=== PATIENT | female | born 1930 | race Caucasian/White ===

== ENCOUNTER 2016-04-24 11:59 | Inpatient (IN) | payer OTHER ==
[~2016-04-24] VITALS: Ht 160 cm; Wt 46.7 kg
--- NOTE | ~2016-04-24 | EKG ---
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 04/25/16 0759 1212 1212 Zachary Carvalho MD, FACC /EPI
--- NOTE | ~2016-04-24 | HC ---
[facility] [place] [address] CONSULTATION Name: MICHEL SALVADOR Room #: 445-P [facility] IN M.R.#: [id number] Admission: 04/24/16 Attend Phys: Matty Juarez MD Discharge: 04/29/16 Date of : 29 Report #: [id number] THIS REPORT FOR: //name// CC: JAMES Juarez MD DATE OF SERVICE: 04/28/2016 REFERRING PROVIDER: Matty Juarez MD REASON FOR CONSULTATION: Pulmonary infiltrates. CHIEF COMPLAINT: Cough and weakness. HISTORY OF PRESENT ILLNESS: Our group was asked to see the patient in consultation while hospitalized at [facility], very pleasant 85-year-old woman without any past pulmonary history and then a remote history of pneumonia, no history of tobacco use, presented to the emergency department after being seen in urgent care for complaints of cough, difficulty expectorating sputum. Denied any fevers or chills, but had been having some sweats and notes some increasing exertional dyspnea, had been feeling very fatigued, in fact felt like not getting out of bed. When presenting to the emergency department, was found to be hypotensive and to have infiltrates. A CT scan of the chest was done to evaluate for pulmonary embolism and reticulonodular infiltrates were noted throughout, predominantly in the lower lung brooks as well as some mediastinal hilar adenopathy, most prominent in the subcarinal area and bilateral hilum. There were some calcifications, however, as well as some other findings suggestive of old granulomatous disease. She was started on antimicrobial therapy for community-acquired pneumonia including Rocephin and azithromycin. She has been improving to this point, however, based on CT imaging, we were asked to further comment. She has no other history of tuberculosis exposure, no other chronic history of weight loss or consumptive symptoms or persistent cough. Current symptoms have been present for about 2 weeks. ALLERGIES: Include MIDAZOLAM, IODINE, and PREDNISONE. PAST MEDICAL HISTORY: 1. Hypertension. 2. History of gastric ulcers. 3. History of hemicolectomy what sounds like ischemic bowel. 4. History of carotid endarterectomies. 5. Cholecystectomy. 6. Hysterectomy. [address] [address] CONSULTATION Name: MICHEL SALVADOR Room #: 445-P [facility] IN M.R.#: [id number] Admission: 04/24/16 Attend Phys: Matty Juarez MD Discharge: 04/29/16 Date of : 29 Report #: [id number] 7. Hyperlipidemia. 8. Osteoarthritis. CURRENT MEDICATIONS: 1. Tylenol p.r.n. 2. DuoNebs q. 4 hours. 3. Aspirin daily. 4. Azithromycin 500 daily. 5. Rocephin 1 mg daily. 6. Colace. 7. Enoxaparin 30 mg at bedtime. 8. Hydrocodone p.r.n. 9. Synthroid 0.088 daily. 10. Metoprolol 25 twice daily. 11. Protonix 40 mg twice daily. 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 Currently lives independently in a condominium with rare alcohol consumption. FAMILY HISTORY: Significant for a brother who had lung cancer, was a never smoker. REVIEW OF SYSTEMS: CONSTITUTIONAL: Denies any fevers, chills. Has had some sweats. No change in weight or appetite. ENT: No upper respiratory congestion. Does have a history of chronic sinus disease, no dysphagia. CARDIOVASCULAR: Denies any chest pain or palpitations. GASTROINTESTINAL: No nausea, vomiting, diarrhea, constipation or abdominal pain. History of ulcers. GENITOURINARY: No dysuria, no frequency. INTEGUMENT: Denies any rash. MUSCULOSKELETAL: Some chronic joint pain, back pain, particularly neck pain associated with osteoarthritis. PHYSICAL EXAMINATION: VITAL SIGNS: Afebrile, pulse 90s and regular, respiratory rate 20, blood pressure 162/95, oxygen saturation 95% on room air. GENERAL: This is a pleasant elderly woman in no distress. ENT: Clear oropharynx. Mallampati 1 airway. NECK: Supple, no lymphadenopathy. LUNGS: Bilateral basilar inspiratory crackles, left greater than right. No wheezes noted. CARDIOVASCULAR: Heart regular. No murmurs noted. ABDOMEN: Soft, nontender, no masses. EXTREMITIES: Warm, 2+ pulses, no edema. [address] [address] CONSULTATION Name: MICHEL SALVADOR Room #: [facility] IN ..#: [id number] Admission: 04/24/16 Attend Phys: Matty Juarez MD Discharge: 04/29/16 Date of : 29 Report #: [id number] MUSCULOSKELETAL: [place] and [place] nodes noted in the hands bilaterally. LABORATORY DATA: CT scan of the chest PE protocol dated April 24 reveals some scattered bronchiectasis. There is a significant lower lobe predominant nodular infiltrates, left greater than right associated with this bronchiectasis. There was also some bilateral hilar and subcarinal adenopathy, some of which is calcified. No discrete lung mass is otherwise appreciated. Sodium is 139, potassium 4.5, chloride 103, bicarbonate 28, BUN 10, creatinine 0.7, glucose 87, albumin is 2.6. White blood cell count 8000, hemoglobin 9, hematocrit 29, platelet count 207. There is no arterial blood gas. No sputum cultures. Respiratory viral panel is pending. IMPRESSION: 1. Nodular pulmonary infiltrates consistent with community-acquired pneumonia. Would also be concerned about atypical infections; however, the patient denies any chronic symptoms. 2. Mediastinal subcarinal adenopathy may be associated with #1 above. I doubt a malignant process especially since there are some calcifications. It suggests an old process that is benign. 3. Anemia of unclear etiology. Consider further workup. SUGGEST: 1. Sputum for AFB and routine cultures. 2. Check nasal swab for respiratory viral panel. 3. Continue with treatment for community-acquired pneumonia. 4. Continue with airway clearance. We will add flutter valve to assist with airway clearance. 5. Mobilize with ambulation. 6. Follow up repeat CT imaging, likely in 4-6 weeks to ensure clearance of infiltrates along with the patient continues to improve. We will follow along with you. Thank you for requesting our suggestions. <ELECTRONICALLY SIGNED> By: Shalom Juarez MD 04/30/16 1508 0941 1014 Shalom Juarez MD /nt
--- NOTE | ~2016-04-24 | EKG ---
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
--- NOTE | ~2016-04-24 | 2DMMODE ---
[facility] [place] [address] 2 D/M-MODE ECHOCARDIOGRAM Name: MICHEL SALVADOR Room #: 445-P [facility] IN M.R.#: [id number] Admission: 04/24/16 Attend Phys: Katy Rosas Discharge: Date of : 28 Date of Service: 04/29/16 0817 Report #: [id number] THIS REPORT FOR: //name// Transthoracic Echocardiography Ordering physician: Matty Juarez Referring physician: Matty Juarez Michael Razor Sharpener: Opal Wilkes Indications/History: Afib. Hx: HTN, HLP BP: 149 / HR: 110bpm Height: 63in Weight: 102.8lb 53 Study data: M-mode, complete 2D, complete spectral Doppler, and color Doppler. Location: Echo laboratory. Routine. Image quality was good. 2D measurements Normal Normal LVID ED 37.3mm 36-57 IVS ED 14.2mm 6-11 LVID ES 27.4mm 23-40 LVPW ED 11.6mm 6-11 LA volume 49ml/m2 16-28 AoRoot diam 31.6mm 21-37 index ED LVOT diameter 20mm 18-23 Findings: Left ventricle: The cavity size was normal. Wall thickness was increased in a pattern of mild LVH. Systolic function was normal. The estimated ejection fraction was in the range of 55% to 60%. Wall motion was normal. Right ventricle: The cavity size was normal. Systolic function was normal. Right atrium: The atrium was normal in size. Left atrium: The atrium was severely dilated. Volume index: 49ml/m2 (S). Aortic valve: Moderately calcified leaflets. 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 RANDY by continuity equation was 1.0cm2. Mild regurgitation. Peak velocity: 258.5cm/s [facility] [address] [place] [address] 2 D/M-MODE ECHOCARDIOGRAM Name: MICHEL SALVADOR Room #: 445-P [facility] IN .Pratik.#: [id number] Admission: 04/24/16 Attend Phys: Matty HagerjacklynKaty mahmood Discharge: Date of : 28 Date of Service: 04/29/16 0817 Report #: [id number] (S). Mean gradient: 16.3mm Hg (S). Peak gradient: 26.7mm Hg (S). Mitral valve: Moderately calcified annulus. Mildly thickened leaflets . Doppler: There was no evidence for stenosis. Moderate regurgitation. Peak E-wave velocity: 169.4cm/s. Peak gradient: 11.5mm Hg (D). Tricuspid valve: Structurally normal valve. Doppler: There was no evidence for stenosis. Mild-moderate regurgitation. Regurgitant peak velocity: 295cm/s. Peak RV-RA gradient: 35mm Hg (S). Pulmonic valve: Structurally normal valve. Doppler: There was no evidence for stenosis. Mild regurgitation. Pericardium: There was no pericardial effusion. Pleura: There was a right pleural effusion. There was a left pleural effusion. Aorta: Aortic root: The aortic root was normal in size. Pulmonary artery: Systolic pressure was estimated to be 45mm Hg. Diastolic function: The study was not technically sufficient to allow evaluation of LV diastolic dysfunction due to atrial fibrillation. Systemic veins: Inferior vena cava: The vessel was mildly dilated; the respirophasic diameter changes were in the normal range (= 50%). Conclusions 1. Left ventricle: The cavity size was normal. Wall thickness was increased in a pattern of mild LVH. Systolic function was normal. The estimated ejection fraction was in the range of 55% to 60%. Wall motion was normal. 2. Aortic valve: Moderately calcified leaflets. 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 Mild regurgitation. Mean gradient: 16.3mm Hg (S). Peak gradient: 26.7mm Hg (S). 3. Mitral valve: Moderately calcified annulus. Mildly thickened leaflets . Moderate regurgitation. 4. Pulmonary arteries: Systolic pressure was estimated to be 45mm Hg. [facility] [address] [place] [address] 2 D/M-MODE ECHOCARDIOGRAM Name: MICHEL SALVADOR Room #: 445-P [facility] IN ..#: [id number] Admission: 04/24/16 Attend Phys: Katy Rosas Discharge: Date of : 28 Date of Service: 04/29/16816 Report #: [id number] 5. Pericardium, extracardiac: There was no pericardial effusion. <ELECTRONICALLY SIGNED> By: Zachary Carvalho MD, FACC 04/29/16916 6 6 Zachary Carvalho MD, [facility] /marquis
--- NOTE | ~2016-04-24 | EKG ---
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: eusebio : 1930 Requested By: Matty Juarez Order Number: [id number] MD: Bunny Medrano Measurements Intervals [place] Rate: 84 P: 79 [place]: 154 QRS: 119 QRSD: 140 T: 28 QT: 418 QTc: 495 Interpretive Statements Sinus rhythm Atrial premature complex Nonspecific intraventricular conduction delay Probable anteroseptal infarct, old Baseline wander in lead(s) V6 No previous ECG available for comparison Electronically Signed On 04-25-2016 8:08:44 EMBLEM DRAWER IN by Bunny Medrano [email or web address] <ELECTRONICALLY SIGNED> By: Bunny Medrano MD 04/25/16 0808 0644 0644 Bunny Medrano MD /EPI
[~2016-04-24 11:59] MED LIST: BACTRIM; CIPROFLOXACIN500 M3 PO; HYDROCHLOROTHIA25 M1 PO; LEVOTHROID88 MCG PO; VICODIN 5-5001 EACH PO; ZESTRIL10 MG PO; ZOCOR 10 MG TAB10 MG PO; ZOFRAN4 MG PO
[2016-04-24 12:00] VITALS: BP 102/51
[2016-04-24] MEDS ORDERED: LISINOPRIL-HCT1 EACH PO (12:12)
[2016-04-24] MEDS ORDERED: MAG-TAB SR84 MG PO (12:14)
[2016-04-24] MEDS ORDERED: CEFUROXIME500 MG PO (12:14)
[2016-04-24] MEDS ORDERED: VITAMIN D2000 UNIT PO (12:15)
[2016-04-24 12:24] LABS: HEMATOCRIT 34.8 % (37.0-47.0); HEMOGLOBIN 11.6 gm/dL (12.0-15.0); MCH 29.1 pg (26.0-34.0); MCHC 33.2 % (28.0-37.0); MCV 87.7 fL (80.0-100.0); PLATELET COUNT 266 thou/uL (150-400); RBC 3.97 mil/uL (4.20-5.00); RDW 13.6 % (10.5-14.5); WBC 13.8 thou/uL (4.0-11.0)
[2016-04-24 12:26] LABS: MANUAL DIFF YES
[2016-04-24 12:38] LABS: CALCIUM 8.9 mg/dL (8.5-10.1); CREATININE 0.9 mg/dL (0.6-1.3); POTASSIUM 3.4 mmol/L (3.5-5.1)
[2016-04-24 12:56] LABS: ABSOLUTE NEUTROPHILS 12.7 thou/uL (1.4-8.2); PLATELET ESTIMATE NORMAL; TOTAL CELL COUNT 100
[2016-04-24 18:48] VITALS: BP 97/50
[2016-04-24 19:10] VITALS: BP 80/47
[2016-04-24 22:33] VITALS: BP 151/67
[2016-04-25 04:45] LABS: ABSOLUTE NEUTROPHILS 6.9 thou/uL (1.4-8.2); BASOPHILS 0.3 % (0.0-2.0); EOSINOPHILS 0.1 % (0.0-3.0); HEMATOCRIT 26.9 % (37.0-47.0); LYMPHOCYTES 19.6 % (24.0-44.0); MCH 29.8 pg (26.0-34.0); MCV 90.2 fL (80.0-100.0); MONOCYTES 8.1 % (1.0-8.0); POLYS 71.9 % (36.0-66.0); RBC 2.99 mil/uL (4.20-5.00); RDW 14.1 % (10.5-14.5); WBC 9.6 thou/uL (4.0-11.0)
[2016-04-25 04:55] LABS: HEMOGLOBIN 8.9 gm/dL (12.0-15.0); PLATELET COUNT 176 thou/uL (150-400)
[2016-04-25 04:56] LABS: MANUAL DIFF NO
[2016-04-25 05:07] LABS: ALBUMIN 2.6 g/dL (3.4-5.0); CALCIUM 7.9 mg/dL (8.5-10.1); CREATININE 0.7 mg/dL (0.6-1.3); MAGNESIUM 1.4 mg/dL (1.8-2.4); POTASSIUM 3.1 mmol/L (3.5-5.1); TOTAL BILIRUBIN 0.4 mg/dL (<0.1-1.0); TOTAL PROTEIN 5.9 g/dL (6.4-8.2)
[2016-04-25 05:22] VITALS: BP 115/57
[2016-04-25 07:39] VITALS: BP 94/61
[2016-04-25 11:14] VITALS: BP 133/63
[2016-04-25 16:50] VITALS: BP 136/67
[2016-04-25 19:55] VITALS: BP 152/82
[2016-04-26] VITALS (7 sets, daily range): BP systolic 108–159; BP diastolic 64–83
[2016-04-26 05:38] LABS: ABSOLUTE NEUTROPHILS 5.6 thou/uL (1.4-8.2); BASOPHILS 0.2 % (0.0-2.0); EOSINOPHILS 0.4 % (0.0-3.0); HEMOGLOBIN 9.3 gm/dL (12.0-15.0); LYMPHOCYTES 19.2 % (24.0-44.0); MCH 29.2 pg (26.0-34.0); MCHC 32.1 % (28.0-37.0); MCV 90.8 fL (80.0-100.0); MONOCYTES 8.6 % (1.0-8.0); PLATELET COUNT 207 thou/uL (150-400); POLYS 71.6 % (36.0-66.0); RBC 3.19 mil/uL (4.20-5.00); RDW 14.6 % (10.5-14.5); WBC 7.8 thou/uL (4.0-11.0)
[2016-04-26 05:54] LABS: CALCIUM 8.2 mg/dL (8.5-10.1); CREATININE 0.7 mg/dL (0.6-1.3); MAGNESIUM 1.5 mg/dL (1.8-2.4); POTASSIUM 3.4 mmol/L (3.5-5.1)
[2016-04-26 05:59] LABS: MANUAL DIFF NO
[2016-04-26 14:40] LABS: MAGNESIUM 1.3 mg/dL (1.8-2.4); POTASSIUM 4.5 mmol/L (3.5-5.1)
[2016-04-27] VITALS (10 sets, daily range): BP systolic 118–180; BP diastolic 57–98
[2016-04-28 00:33] VITALS: BP 158/78
[2016-04-28 05:37] VITALS: BP 102/78
[2016-04-28 08:00] VITALS: BP 162/95
[2016-04-28 08:08] VITALS: BP 159/85
[2016-04-28 15:25] VITALS: BP 162/86
[2016-04-29 00:01] VITALS: BP 142/84
[2016-04-29 04:51] VITALS: BP 149/53
[2016-04-29 05:53] LABS: CALCIUM 8.6 mg/dL (8.5-10.1); CREATININE 0.8 mg/dL (0.6-1.3); POTASSIUM 3.8 mmol/L (3.5-5.1)
[2016-04-29 08:00] VITALS: BP 169/70
[2016-04-29] MEDS ORDERED: CEFUROXIME500 MG PO (11:59)
[2016-04-29] MEDS ORDERED: LOPRESSOR50 PO (11:59)
[2016-04-29] MEDS ORDERED: ASA81BEC PO (11:59)
[2016-04-29 12:00] VITALS: BP 118/76
[2016-04-29 14:13] VITALS: BP 118/76
[2016-05-01 05:09] LABS: INFLUENZA B Negative (Negative); METAPNEUMOVIRUS Negative (Negative)
== END 2016-04-29 17:22 | disposition home or self-care (01) | DRG 871 ==
LOC: ER 11:59 → 4S 14:05 → EROBS 14:05 → 4S 17:26
PROVIDERS: Internal Medicine; Internal Medicine Cardiovascular Disease; Internal Medicine Pulmonary Disease; Nurse Practitioner; Physician Assistant
DX: A41.9 Sepsis, unspecified organism (principal); J18.9 Pneumonia, unspecified organism; E43 Unspecified severe protein-calorie malnutrition; E87.1 Hypo-osmolality and hyponatremia; K56.60 Unspecified intestinal obstruction; E78.5 Hyperlipidemia, unspecified; I48.91 Unspecified atrial fibrillation; E87.6 Hypokalemia; I10 Essential (primary) hypertension; D64.9 Anemia, unspecified; E83.42 Hypomagnesemia; M06.9 Rheumatoid arthritis, unspecified; I65.29 Occlusion and stenosis of unspecified carotid artery; E03.9 Hypothyroidism, unspecified; J44.9 Chronic obstructive pulmonary disease, unspecified; Z60.2 Problems related to living alone; I48.0 Paroxysmal atrial fibrillation; R59.9 Enlarged lymph nodes, unspecified; M51.36 Other intervertebral disc degeneration, lumbar region; Z90.710 Acquired absence of both cervix and uterus; Z91.041 Radiographic dye allergy status; Z88.8 Allergy status to other drugs, medicaments and biological substances; Z90.49 Acquired absence of other specified parts of digestive tract; Z79.2 Long term (current) use of antibiotics; Z80.1 Family history of malignant neoplasm of trachea, bronchus and lung
CPT/HCPCS: 10100

== ENCOUNTER → 2016-07-22 | Outpatient (CLI) | payer OTHER ==
[~2016-07-22] MED LIST changes: +ASA81BEC PO; +CEFUROXIME500 MG PO; +LISINOPRIL-HCT1 EACH PO; +LOPRESSOR50 PO; +MAG-TAB SR84 MG PO; +VITAMIN D2000 UNIT PO
== END ==
LOC: ULTRA 12:09
DX: I73.9 Peripheral vascular disease, unspecified (principal); I65.23 Occlusion and stenosis of bilateral carotid arteries